=== PATIENT | female | born 1940 | race Caucasian/White ===

== ENCOUNTER → 2016-08-31 | Outpatient (CLI) | payer OTHER ==
[~2016-08-31] MED LIST: ACTONEL PO; ADVAIR 250-501 EAC1 INH; ADVAIR 250-501 EACH INH; ALPRAZOLAM0.5 MG PO; AMITRYPTYLINE PO; ASPIRIN81 M1 PO; ASPIRIN81 M2 PO; ASPIRIN81 MG PO; ATENOLOL PO; BENTYL20 M1; CALTRATE 600+D PO; CALTRATE PO; COMBIVENT RESPIM4 GM INH; COMBIVENT U/D3 M2; DARVOCET-N 1001 TAB PO; FISH OIL 1,0001 CAP PO; FLEXERIL PO; FLONASE 0.05% N16 G1; FLONASE16 GM; FLOVENT7.9 GM; HYDROCODON-ACE1 EAC5 PO; LIORESAL10 MG PO; LIPITOR PO; LIPITOR20 MG PO; LOMOTIL WHITE2.5 M1 PO; OMEPRAZOLE40 M1 PO; PANTOPRAZOLE SO40 MG PO; POTASSIUM GLUCO99 MG PO; RESTASIS MULTI5.5 ML; SERTRALINE HCL50 M1 PO; SERTRALINE HCL50 MG PO; SPIRIVA18 MCG INH; TENORMIN25 MG PO; TRAMADOL HCL50 M1 PO; VITAMIN D-32000 UNI1 PO; VITAMIN D2000 UNIT PO
== END | disposition home or self-care (01) ==
LOC: CRAD 09:45
DX: R13.10 Dysphagia, unspecified (principal)
CPT/HCPCS: 74230; 92611; G8996-GN; G8997-GN; G8998-GN

== ENCOUNTER → 2016-09-21 | Outpatient (CLI) | payer OTHER ==
--- NOTE | ~2016-09-21 | CT4 ---
[facility] A Service of [facility] RADIOLOGY TEXT RESULTS PATIENT: MARK VELAZQUEZ LOCATION: [facility] : 42 UNIT #: [id number] AGE: [address]: Trini Moyer APRN SEX: F ORDER DR: [id number] [id number] [facility] [place], [place] [address] [id number] O MR#: [id number] Acc #: [id number] NAME: MARK VELAZQUEZ : 1940 SEX: F STUDY DATE/TIME: 09/21/2016 10:07 UNIT: [facility] ROOM: STUDY DESCRIPTION: CT Abd and Pelv Wo Cont Attending Physician: Trini Moyer A.P.R.N. Ordering Physician: Trini Moyer A.P.R.N. Primary Care Physician: Maxi Singletary M.D. MEDICAL IMAGING REPORT This report is preliminary unless electronic signature is present EXAM CT abdomen and pelvis without contrast INDICATIONS Left lower quadrant abdominal pain and left flank pain for 3-[address] scan of the abdomen pelvis was performed with oral contrast only. Coronal and sagittal reformatted images were obtained. This CT exam was performed with one or more of the following radiation dose reduction techniques: automatic exposure control, adjustment of mA and/or kV according to patient size, and iterative reconstruction. COMPARISON 12/05/2011 FINDINGS There is linear scarring or atelectasis in the left lower lobe. There is a tiny cyst in the liver. The gallbladder is unremarkable. The spleen is unremarkable. The kidneys and adrenal glands are unremarkable. There is fatty infiltration of the pancreas. The aorta is tortuous. Pelvis: Colon contains multiple diverticula. No diverticulitis. No free fluid. Bone windows demonstrate extensive scoliosis of the lumbar spine. IMPRESSION No CT findings to explain the patient's symptoms. Dictated by... Oliver Wilson M.D. THIS IS AN ELECTRONICALLY VERIFIED REPORT Oliver Wilson M.D. at 09/29/2016 3:57 PM [facility] A Service of [facility] & [facility] RADIOLOGY TEXT RESULTS PATIENT: MARK VELAZQUEZ LOCATION: [facility] : 41 UNIT #: [id number] AGE: [address]: Trini Moyer APRN SEX: F ORDER DR: Sunny TD: 09/21/2016 12:37 JOB #: [id number] MEDICAL IMAGING REPORT Page 1 of 1 COPY
== END | disposition home or self-care (01) ==
LOC: CCAT 08:48
DX: R10.32 Left lower quadrant pain (principal)
CPT/HCPCS: 74176

== ENCOUNTER → 2016-11-01 | Day surgery (SDC) | payer OTHER ==
--- NOTE | ~2016-11-01 | OR ---
Unit #: [id number] #: [id number] Patient: MARK VELAZQUEZ [id number] [address] [address] [id number] O MR#: [id number] NAME: MARK VELAZQUEZ ROOM: Date of Procedure: 11/01/2016 Admission Date: 11/01/2016 Surgeon: Jesus Whalen M.D. : 1940 Attending Physician: Jesus Whalen M.D. Referring Physician: Jesus Whalen M.D. Primary Care Physician: Maxi Singletary M.D. OPERATIVE REPORT PRIMARY CARE PHYSICIAN Maxi Singletary M.D. PREOPERATIVE DIAGNOSES Dysphagia. The patient has history of bolus impaction of the food for considerable time. PROCEDURES PERFORMED 1. Upper gastrointestinal endoscopy and biopsy. 2. Upper gastrointestinal endoscopy and dilation. POSTOPERATIVE DIAGNOSES 1. The patient had at least 2 distinct benign rings in the distal esophagus. These were dilated using an 18 to 20 mm TTS balloon. 2. Moderate prepyloric antral diffuse gastritis. Biopsies obtained from the antrum for CLOtest. 3. Rest of the examination up to third part of duodenum was normal. RECOMMENDATIONS The patient is advised to increase the dose of omeprazole to 40 mg p.o. b.i.d. She will be followed up in the office in 8 to 10 weeks' time. SEDATION USED MAC. DESCRIPTION OF PROCEDURE Following detailed explanation of potential risks and complications of an upper endoscopy, namely perforation, bleeding, and complications related to sedation, the patient was brought to GI lab and laid in the left lateral decubitus position. Lubricated tip of the Olympus video upper endoscope was passed through bite block into the proximal esophagus under direct vision. The entire esophageal mucosa was examined. The patient was noted to have at least 2 distinct rings of the distal esophagus with classic benign appearance. There was some degree of stenosis of the distal esophagus. The scope was then advanced into the gastric cavity and the latter was insufflated. Mucosa of the fundus, body, and antrum examined and moderate prepyloric antral diffuse gastritis was noted. Pylorus was intubated with visualization of the normal duodenal bulb and second and third part of the duodenum. Upon withdrawal and retroflexion, incisura, cardia, and greater curve examined and a biopsy obtained from the antrum for CLOtest. The scope was withdrawn in the distal esophagus. An 18 to 20 mm TTS balloon was passed through the accessory channel of the Unit #: [id number] #: [id number] Patient: MARK VELAZQUEZ scope and step-up dilation of the distal esophagus was done at 2 different levels for the distal esophageal ring. Good dilation was achieved. Minimal bleeding was noted. The area was thoroughly washed with water. Good hemostasis was achieved. Photodocumentation was obtained. The entire esophageal mucosa was examined all the way up to pharynx. No additional findings noted. The patient tolerated the procedure without any postprocedure complications. Dictated by... Jeannie Orantes/tree TD: 11/01/2016 17:51 JOB #: [id number] OPERATIVE REPORT Page 1 of 1 X Jesus Whalen MD X PROCEDURE OPERATIVE NOTE
== END | disposition home or self-care (01) ==
LOC: COPS 13:49
DX: K22.2 Esophageal obstruction (principal); K29.70 Gastritis, unspecified, without bleeding; K21.9 Gastro-esophageal reflux disease without esophagitis; I10 Essential (primary) hypertension; J43.9 Emphysema, unspecified; Z79.891 Long term (current) use of opiate analgesic; Z79.899 Other long term (current) drug therapy; Z79.51 Long term (current) use of inhaled steroids; Z79.82 Long term (current) use of aspirin; Z98.1 Arthrodesis status; Z98.51 Tubal ligation status; Z98.890 Other specified postprocedural states
CPT/HCPCS: 87077; 88305; 88312

== ENCOUNTER → 2016-11-21 | Outpatient (CLI) | payer OTHER ==
--- NOTE | ~2016-11-21 | CT4 ---
[facility] A Service of [facility] & [facility] RADIOLOGY TEXT RESULTS PATIENT: MARK VELAZQUEZ LOCATION: [facility] : 41 UNIT #: [id number] AGE: [address]: Trini Moyer APRN SEX: F ORDER DR: [id number] [facility] [address] [place], [place] [address] [id number] O MR#: [id number] [facility] #: [id number] NAME: MARK VELAZQUEZ : 1940 SEX: F STUDY DATE/TIME: 11/21/2016 16:15 UNIT: [facility] ROOM: STUDY DESCRIPTION: CT Abd and Pelv Wo Cont Attending Physician: Trini Moyer A.P.R.N. Referring Physician: Trini Myoer A.P.R.N. Ordering Physician: Trini Moyer A.P.R.N. Primary Care Physician: Trini Moyer A.P.R.N. MEDICAL IMAGING REPORT This report is preliminary unless electronic signature is present EXAM CT abdomen and pelvis, 11/21/2016 HISTORY Constipation. Left side abdomen pain. Urine was orange times today. Difficulty urinating times [address] abdomen and pelvis performed without administration of oral or intravenous contrast. Comparison 09/21/2016. This CT exam was performed with one or more of the following radiation dose reduction techniques: Automatic exposure control, adjustment of mA and/or kV according to patient size, and iterative reconstruction. Dependent atelectasis or scarring at the lung bases. Mild bronchiectasis at lung bases. There is probably some mild emphysema at the lung bases. These findings are stable. Heart upper limits of normal in size. Tiny hypodense focus in the anterior right hepatic lobe unchanged and likely a small subcentimeter cyst. No suspicious hepatic findings. The gallbladder is unremarkable, as is the spleen. Fatty infiltration of pancreas. No acute appearing pancreatic abnormality. The adrenal glands are unremarkable. Right kidney and ureter unremarkable. The left kidney shows mild lower pole caliectasis. No change. No obstructing process. No left-sided renal calculi. No ureteral dilatation. No secondary signs of recent stone passage. There is some stranding in the fat adjacent to the left kidney, which is stable and felt to represent chronic change. CT PELVIS: No inguinal adenopathy. Urinary bladder, uterus, adnexal regions unremarkable. No free fluid in the pelvis. No pelvic or retroperitoneal adenopathy. Distal esophagus, stomach, small bowel unremarkable. Questionable visualization of a normal appendix. No abnormal appendix and no pericecal inflammatory changes seen. Moderate stool burden in colon without pathologic dilatation or colonic STS. [facility] A Service of [facility] / [facility] RADIOLOGY TEXT RESULTS PATIENT: MARK VELAZQUEZ LOCATION: [facility] : 42 UNIT #: [id number] AGE: [address]: Trini Moyer [employer] SEX: F ORDER DR: inflammatory change. Appearance could be a reflection of some degree of constipation, given patient history. There is uncomplicated sigmoid diverticulosis. Atherosclerotic arterial calcifications. No aortic aneurysm. Scoliotic and degenerative changes in the lumbar spine, stable. IMPRESSION 1. Findings discussed with Trini Moyer at time of this dictation. No clearly acute abnormality is seen within the abdomen or pelvis. 2. Moderate stool burden in colon without pathologic dilatation and with no acute appearing colonic findings. There is no evidence of colitis. There is uncomplicated sigmoid diverticulosis. There is no evidence of obstruction. 3. Questionable visualization of normal appendix. No abnormal appendix or pericecal inflammatory changes seen. 4. Gallbladder unremarkable. 5. Fatty infiltration of the pancreas. Stable. No acute pancreatic abnormality. 6. No acute renal findings. 7. Uterus and adnexal regions unremarkable. 8. No abnormal fluid collections. 9. Chronic changes at the lung bases as described above. See details in body of report. 10. Prominent degenerative and scoliotic changes in the lumbar spine are stable. No acute-appearing bony abnormality. Dictated by... Paulino Parr M.D. THIS IS AN ELECTRONICALLY VERIFIED REPORT Paulino Parr M.D. at 11/22/2016 6:04 PM MORIAH/john TD: 11/22/2016 02:55 JOB #: [id number] MEDICAL IMAGING REPORT Page 1 of 1 COPY
== END | disposition home or self-care (01) ==
LOC: CCAT 15:00
DX: K59.00 Constipation, unspecified (principal); K86.89 Other specified diseases of pancreas; M47.896 Other spondylosis, lumbar region
CPT/HCPCS: 74176